=== PATIENT | male | born 1950 | race Caucasian/White ===

== ENCOUNTER 2018-11-10 08:39 | Inpatient (IN) | payer BC, MEDICARE ==
[2018-11-05 12:17] LABS: Urine Bacteria NONE SEEN /hpf (None Seen); Urine Blood Negative /uL (Negative); Urine Specific Gravity 1.012 (1.001-1.035); Urine WBC 1 /hpf (0 - 3)
[2018-11-05 12:24] LABS: Basophils # (auto) 0 uL; Basophils % (auto) 0.5 % (0.0-2.0); Eosinophils # (auto) 0.1 uL; Hematocrit 43.2 % (41.0-53.0); Hemoglobin 14.4 g/dL (13.5-17.5); Lymphocytes # (auto) 2.3 uL; Lymphocytes % (auto) 33.3 % (10.0-50.0); Mean Corpuscular Hemoglobin 30.5 pg (28.0-32.0); Mean Corpuscular Hgb Conc. 33.3 g/dL (32.0-36.0); Mean Corpuscular Volume 91.7 fL (80.0-100.0); Monocytes # (auto) 0.6 uL; Monocytes % (auto) 8.6 % (0.0-12.0); Neutrophils # (auto) 3.8 uL; Neutrophils % (auto) 55.6 % (37.0-80.0); Nucleated Red Blood Cells % 0.1 %; Platelet Count (auto) 256 10^3/uL (140-450); Red Blood Cells 4.71 10^6/uL (4.5-5.90); Red Cell Distribution Width 13.5 % (11.8-14.3); White Blood Cell 6.8 10^3/uL (4.4-10.8)
[2018-11-05 12:50] LABS: INR 0.92 (0.9-1.15); Partial Thromboplastin Time 30.6 sec (23.78-33.04); Prothrombin Time 9.9 sec (9.27-12.13)
[2018-11-05 12:55] LABS: Albumin 3.9 g/dL (3.4-5.0); Calcium 8.8 mg/dL (8.5-10.1); Potassium 4.1 mmol/L (3.5-5.1)
[2018-11-05 12:58] LABS: BUN/Creatinine Ratio 11.5; Bilirubin, Total 0.7 mg/dL (0.2-1.0)
[~2018-11-10] VITALS: Ht 185.4 cm; Wt 109.0 kg
[~2018-11-10 08:39] MED LIST: AMLO5TAB13 PO; BUPIVACAINE 0.25% INJ 50ML VIAL ONE; CHOL50007 PO; LIDOCAINE W/ EPINEPHRINE 1 % INJ 30ML ONE; LISI30TA36 PO; MANNITOL FTV 25% 12.5 GM/50 ML 0 ML IV ONE; METF-370 PO; MULT1TAB95 PO; OMEG500C PO
[2018-11-10] MEDS ORDERED: SUCCINYLCHOLINE CHLORIDE 20 MG/ML 10ML VIAL IV ONE (09:45)
[2018-11-10] MEDS ORDERED: MEPERIDINE HCL (50 MG/ML) 1 ML VIAL ONE (09:52)
[2018-11-10] MEDS ORDERED: fentaNYL CITRATE 100 MCG/2 ML VL ONE (09:52)
[2018-11-10] MEDS ORDERED: MIDAZOLAM HCL 1MG/1ML-2 ML VIAL ONE (09:52)
[2018-11-10] MEDS ORDERED: fentaNYL CITRATE 5 ML ONE (09:52)
[2018-11-10] MEDS ORDERED: PROPOFOL 10 MG/ML 20 ML IV ONE (09:53)
[2018-11-10] MEDS ORDERED: DEXAMETHASONE SOD PHOS 10MG/1ML VIAL INJ ONE (09:53)
[2018-11-10] MEDS ORDERED: ROCURONIUM 10MG/ML 10ML VIAL IV ONE (09:54)
[2018-11-10] MEDS ORDERED: ceFOXitin 2GM/100ML 100 ML IV ONE (10:01)
[2018-11-10] MEDS ORDERED: ONDANSETRON HCL 4 MG/2 ML VIAL IV ONE (11:30)
[2018-11-10] MEDS ORDERED: KETOROLAC TROMETH 30 MG/ML 1ML VIAL IV ONE (11:30)
[2018-11-10] MEDS ORDERED: HYDROmorphone HCL 2 MG/ML VL IV PRN ×2 (11:30→14:30)
[2018-11-10] MEDS ORDERED: ACCU-CHEK COMFORT CURVE STRIP VI ONE (11:30)
[2018-11-10] MEDS ORDERED: MIDAZOLAM HCL 1MG/1ML-2 ML VIAL IV PRN (11:30)
[2018-11-10] MEDS ORDERED: ePHEDrine SULFATE 50 MG/ML AMP IV PRN (11:30)
[2018-11-10] MEDS ORDERED: MORPHINE SULFATE 4 MG/ML SYR/VIAL IV PRN (11:30)
[2018-11-10] MEDS ORDERED: LABETALOL HCL 5 MG/ML 4ML SYRINGE IV PRN (11:30)
[2018-11-10] MEDS ORDERED: NEOSTIGMINE 1 MG/ML INJ (10mg/10ML VIAL) ONE (11:58)
[2018-11-10] MEDS ORDERED: MORPHINE SULFATE 4 MG/ML SYR/VIAL IV ONE (12:00)
[2018-11-10] MEDS ORDERED: GLYCOPYRROLATE 0.2 MG/ML 1ML VIAL ONE (12:51)
[2018-11-10] MEDS ORDERED: DEXTROSE (50%) 50ML SYRG IV PRN (14:30)
[2018-11-10] MEDS ORDERED: diphenhdrAMINE HCL 50 MG/1 ML VL IV PRN (14:30)
[2018-11-10] MEDS ORDERED: ONDANSETRON HCL 4 MG/2 ML VIAL IV PRN (14:30)
[2018-11-10] MEDS ORDERED: CEFOXITIN SODIUM 1 GM in D5W 5% 50 ML IV SCH ×2 (15:00→18:30)
--- NOTE | 2018-11-10 16:12 | NUR ---
RECEIVED PATIENT FROM OR, FAMILY BY HIS BEDSIDE. PATIENT IS ALERT AND AWAKE, NO SIGNS OF PAIN OR DISTRESS AT THIS TIME. HARTMANN CATH IN PLACE, TWO IV LINES IN PLACE, PATIENT BROUGHT IN BY BED. S/P RIGHT NEPHRECTOMY ROBOTIC ASSISTED.
[2018-11-10] MEDS: SOD CHL 0.45% 1,000 ML IV SCH ×2 (16:47→21:12)
[2018-11-10 17:00] VITALS: BP 155/82
[2018-11-10] MEDS: InsuLIN REG 1unit/0.01ml Soln (100units/ml) SC SCH (17:00)
[2018-11-10] MEDS: ACCU-CHEK COMFORT CURVE STRIP VI SCH ×2 (17:00→21:11)
[2018-11-10] MEDS ORDERED: amLODIPine BESYLATE 5 MG TAB PO SCH (17:30)
[2018-11-10] MEDS ORDERED: LISINOPRIL 10 MG TAB PO SCH (17:30)
[2018-11-10] MEDS: ACETAMINOPHEN/CODEINE#3 (300/30mg) TAB PO PRN (18:21)
--- NOTE | 2018-11-10 19:25 | NUR ---
OPENING SHIFT NOTE Received report from day shift RN. Patient is A&O X's 4 with no s/s of distress noted. Patient reports no pain. SCD's are applied bilaterally. Greenfield catheter is below level of bladder with no kinks noted. Bed is in lowest/locked position and side rails up X's 2. Educated patient on POC and to use call light when in need of assistance. Patient verbalized understanding. Call light is within reach of patient. Will continue to monitor and round hourly/PRN.
[2018-11-10] MEDS: CEFOXITIN SODIUM 1 GM in D5W 5% 50 ML IV SCH (21:11)
[2018-11-10 22:00] VITALS: BP 156/91
[2018-11-10] MEDS ORDERED: InsuLIN REG 1unit/0.01ml Soln (100units/ml) SC SCH (22:00)
[2018-11-11 05:00] VITALS: BP 151/77
[2018-11-11] MEDS: CEFOXITIN SODIUM 1 GM in D5W 5% 50 ML IV SCH ×2 (05:40→14:00)
[2018-11-11] MEDS: SOD CHL 0.45% 1,000 ML IV SCH ×2 (05:43→14:19)
--- NOTE | 2018-11-11 05:55 | NUR ---
HARTMANN CATHETER REMOVAL Catheter bag had 500 ml of clear,yellow urine that was drained prior to removal. Procedure and reason for removal of Hartmann catheter was explained to patient. Patient verbalized understanding. Hartmann catheter was removed using clean technique. Catheter was fully intact. Patient was provided with a urinal at this time. Will continue to monitor and round hourly/PRN. Will monitor urine output.
[2018-11-11 06:07] LABS: Calcium 8.2 mg/dL (8.5-10.1); Potassium 4.1 mmol/L (3.5-5.1)
[2018-11-11 06:09] LABS: BUN/Creatinine Ratio 9.5
[2018-11-11] MEDS: InsuLIN REG 1unit/0.01ml Soln (100units/ml) SC SCH ×2 (06:34→11:30)
[2018-11-11] MEDS: ACCU-CHEK COMFORT CURVE STRIP VI SCH ×2 (06:34→11:30)
--- NOTE | 2018-11-11 07:20 | NUR ---
Assumed care, patient is A/O x 4, POC discussed with patient, no signs of distress noted, incisional sites right abdomen CDI, IVs to right and left hands intact and patent, bed locked in lowest position, call light within reach, will continue to monitor Q 1hr and PRN
[2018-11-11 08:00] VITALS: BP 151/77
[2018-11-11 09:00] VITALS: BP 149/85
[2018-11-11] MEDS: ACETAMINOPHEN/CODEINE#3 (300/30mg) TAB PO PRN (09:01)
--- NOTE | 2018-11-11 09:30 | NUR ---
patient is C/O right neck and shoulder pain, heat packs and pain meds administered, MD aware
[2018-11-11] MEDS ORDERED: METHOCARBAMOL 500 MG TAB PO ONE (11:45)
[2018-11-11] MEDS ORDERED: metFORMIN HYDROCHLORIDE 500 MG TAB PO SCH (12:00)
[2018-11-11 13:00] VITALS: BP 174/93
[2018-11-11 14:35] VITALS: BP 162/49
--- NOTE | 2018-11-11 15:12 | NUR ---
Howard catheter insertion Patient assessed and determined to be in need of howard catheter. Order obtained from MD. Patient educated on catheter and reason for insertion. All questions answered. Howard catheter 14 guage Amharic inserted with clean sterile technique. Patient tolerated well.
[2018-11-11 16:12] VITALS: BP 162/49
--- NOTE | 2018-11-11 17:00 | NUR ---
Discharge instructions given as ordered. Encourage to follow up with PMD AND urology as instructed. Greenfield catheter left in place and patent per MD instructions, Patient educated on Greenfield care and leg bag use, All questions and concerns addressed. Patient verbalized understanding. IVs removed with catheters intact, pressure dressing applied. Patient taken to vehicle via wheelchair with all personal belongings, accompanied by staff and family member. No distress noted at time of departure.
== END 2018-11-11 17:30 | disposition home or self-care (01) | DRG 661 ==
LOC: SUR 08:39 → CENTRAL 15:55
PROVIDERS: ADMIT Internal Medicine; ATTEND Urology
PROC: 8E0W4CZ Robotic Assisted Procedure of Trunk Region, Percutaneous Endoscopic Approach (ICD-10-PCS; 2018-11-10)
PROC: 0TT04ZZ Resection of Right Kidney, Percutaneous Endoscopic Approach (ICD-10-PCS; principal; 2018-11-10 10:05)
DX: N13.30 Unspecified hydronephrosis (principal); M54.2 Cervicalgia; M54.9 Dorsalgia, unspecified; I11.9 Hypertensive heart disease without heart failure; E11.9 Type 2 diabetes mellitus without complications
CPT/HCPCS: 36415; 80048; 80053; 81001; 82962; 85025; 85610; 85730; 86850; 86900; 86901; 87086; A6257; G0378; J0330; J0694; J1100; J2250; J2704; J3490; J7060

== ENCOUNTER 2019-06-15 11:53 | Day surgery (SDC) | payer BC, MEDICARE ==
[2019-06-14 12:51] LABS: Basophils # (auto) 0 uL; Basophils % (auto) 0.7 % (0.0-2.0); Eosinophils # (auto) 0.3 uL; Eosinophils % (auto) 3.5 % (0.0-7.0); Hematocrit 39.3 % (41.0-53.0); Lymphocytes # (auto) 2.1 uL; Lymphocytes % (auto) 27.8 % (10.0-50.0); Mean Corpuscular Hemoglobin 30.3 pg (28.0-32.0); Mean Corpuscular Volume 91.8 fL (80.0-100.0); Monocytes # (auto) 0.7 uL; Monocytes % (auto) 9.1 % (0.0-12.0); Neutrophils # (auto) 4.5 uL; Neutrophils % (auto) 58.9 % (37.0-80.0); Platelet Count (auto) 326 10^3/uL (140-450); Red Blood Cells 4.28 10^6/uL (4.5-5.90); Urine Bacteria MANY /hpf (None Seen); Urine Blood TRACE /uL (Negative); Urine Specific Gravity 1.014 (1.001-1.035); Urine WBC 118 /hpf (0 - 3); Urine WBC Clumps PRESENT /hpf (None Seen); White Blood Cell 7.6 10^3/uL (4.4-10.8)
[2019-06-14 13:45] LABS: INR < 0.93 (0.9-1.15); Partial Thromboplastin Time 29.9 sec (23.64-32.05)
[2019-06-14 13:50] LABS: Albumin 3.8 g/dL (3.4-5.0); Calcium 9.3 mg/dL (8.5-10.1); Potassium 4.6 mmol/L (3.5-5.1)
[2019-06-14 13:54] LABS: BUN/Creatinine Ratio 13.7; Bilirubin, Total 0.4 mg/dL (0.2-1.0); Total Protein 8.1 g/dL (6.4-8.2)
[~2019-06-15] VITALS: Ht 185.4 cm; Wt 103.9 kg
[~2019-06-15 11:53] MED LIST changes: +AML5T PO; -AMLO5TAB13 PO; -BUPIVACAINE 0.25% INJ 50ML VIAL ONE; -LIDOCAINE W/ EPINEPHRINE 1 % INJ 30ML ONE; +LISI10TA6 PO; -MANNITOL FTV 25% 12.5 GM/50 ML 0 ML IV ONE; -METF-370 PO; -OMEG500C PO
[2019-06-15] MEDS ORDERED: ceFOXitin 2GM/100ML 100 ML IV ONE (13:56)
[2019-06-15] MEDS ORDERED: SUCCINYLCHOLINE CHLORIDE 20 MG/ML 10ML VIAL IV ONE (14:45)
[2019-06-15] MEDS ORDERED: FUROSEMIDE 20 MG/2 ML VIAL IV ONE (14:45)
[2019-06-15] MEDS ORDERED: MEPERIDINE HCL (25 MG/ML) 1ML VIAL ONE (14:50)
[2019-06-15] MEDS ORDERED: fentaNYL CITRATE 100 MCG/2 ML VL ONE (14:50)
[2019-06-15] MEDS ORDERED: MIDAZOLAM HCL 1MG/1ML-2 ML VIAL ONE (14:52)
[2019-06-15] MEDS ORDERED: SODIUM CHLORIDE LOCK 10 ML ONE (14:52)
[2019-06-15] MEDS ORDERED: PROPOFOL 10 MG/ML 20 ML IV ONE (14:52)
[2019-06-15] MEDS ORDERED: ONDANSETRON HCL 4 MG/2 ML VIAL ONE (14:52)
[2019-06-15] MEDS ORDERED: ACCU-CHEK COMFORT CURVE STRIP VI ONE (15:00)
[2019-06-15] MEDS ORDERED: HYDROmorphone HCL 2 MG/ML VL IV PRN (15:00)
[2019-06-15] MEDS ORDERED: fentaNYL CITRATE 100 MCG/2 ML VL IV PRN (15:00)
[2019-06-15] MEDS ORDERED: METOCLOPRAMIDE HCL 5MG/ml INJ 2ml VIAL IV PRN (15:00)
[2019-06-15] MEDS ORDERED: ROCURONIUM 10MG/ML 10ML VIAL IV ONE (15:04)
[2019-06-15 16:55] VITALS: BP 160/78
[2019-06-16] MEDS ORDERED: LISINOPRIL 10 MG TAB PO SCH (10:00)
[2019-06-16] MEDS ORDERED: PATIENTS OWN MEDICATION (Lisinopril 10 MG) PO SCH (10:00)
[2019-06-16] MEDS ORDERED: amLODIPine BESYLATE 5 MG TAB PO SCH (12:00)
== END 2019-06-15 17:17 | disposition home or self-care (01) ==
LOC: SUR 11:53
PROVIDERS: ATTEND Urology
DX: N40.1 Benign prostatic hyperplasia with lower urinary tract symptoms (principal); I11.9 Hypertensive heart disease without heart failure; E11.9 Type 2 diabetes mellitus without complications; Z79.84 Long term (current) use of oral hypoglycemic drugs; Z79.899 Other long term (current) drug therapy; Z90.5 Acquired absence of kidney
CPT/HCPCS: 36415; 52601; 80053; 81001; 82962; 85025; 85610; 85730; 88305; 88342; 93005; J0330; J0694; J1940; J2175; J2250; J2405; J2704; J3010

== ENCOUNTER 2024-03-15 11:15 | Inpatient (IN) | payer BC, MEDICARE, OTHER ==
[~2024-03-15] VITALS: Ht 185.4 cm; Wt 103.0 kg
[~2024-03-15 11:15] MED LIST changes: +LISI10TA34 PO; -LISI10TA6 PO; -LISI30TA36 PO; +LISI30TA8 PO
[2024-03-15 11:46] LABS: Urine Bacteria None Seen /hpf (None Seen)
[2024-03-15 12:33] LABS: Basophils # (auto) 0 10 ^3/uL (0-0.2); Basophils % (auto) 0.3 % (0.0-2.0); Eosinophils # (auto) 0 10 ^3/uL (0-0.8); Eosinophils % (auto) 0.2 % (0.0-7.0); Hematocrit 45.5 % (41.0-53.0); Hemoglobin 15.5 g/dL (13.5-17.5); Lymphocytes % (auto) 8.5 % (10.0-50.0); Mean Corpuscular Volume 94.1 fL (80.0-100.0); Monocytes # (auto) 0.6 10 ^3/uL (0-1.3); Monocytes % (auto) 5.7 % (0.0-12.0); Neutrophils # (auto) 9.7 10 ^3/uL (1.6-8.6); Neutrophils % (auto) 85.3 % (37.0-80.0); Nucleated Red Blood Cells % 0.1 %; Red Blood Cells 4.84 10^6/uL (4.5-5.90); White Blood Cell 11.4 10^3/uL (4.4-10.8)
[2024-03-15 12:37] LABS: Urine Blood 3+ /uL (Negative); Urine Clarity Clear (Clear); Urine Color Light-Yellow (Yellow); Urine Hyaline Cast FEW /lpf (0 - 2); Urine Protein, UAD 1+ (Negative); Urine Specific Gravity 1.013 (1.001-1.035); Urine Urobilinogen Normal (Negative); Urine WBC 9 /hpf (0 - 3); Urine pH 5.5 (5.0-9.0)
[2024-03-15 12:37] LABS: Chloride 109 mmol/L (98-107); Potassium 3.9 mmol/L (3.5-5.1); Sodium 139 mmol/L (136-145)
[2024-03-15 12:38] LABS: Anion Gap 10 (5-15); Calcium 9.6 mg/dL (8.7-10.4); Carbon Dioxide 20 mmol/L (20-30)
[2024-03-15 12:43] LABS: BUN/Creatinine Ratio 9.9 (10.0-20.0); Blood Urea Nitrogen 17 mg/dL (9-23); Glucose 84 mg/dL (74-106)
[2024-03-15] MEDS: SODIUM CHLORIDE 0.9% 500 ML IVB ONE (17:23)
[2024-03-15] MEDS ORDERED: MORPHINE SULFATE INJ 2 MG/ml SYRG IV PRN (17:45)
[2024-03-15] MEDS ORDERED: NITROGLYCERIN 0.4 MG SL TAB SL PRN (17:45)
[2024-03-16 02:00] VITALS: BP 157/85; PULSE 67; RESP 18; TEMP 98.1; O2SAT 96
[2024-03-16] MEDS ORDERED: ATOR40TA52 PO (02:06)
[2024-03-16] MEDS ORDERED: INSUINJ37 SC (02:07)
[2024-03-16] MEDS ORDERED: CANA100T PO (02:09)
[2024-03-16] MEDS ORDERED: SEMA7TAB2 PO (02:09)
[2024-03-16] MEDS ORDERED: TAMS0.4C36 PO (02:09)
[2024-03-16 03:10] VITALS: BP 157/85; PULSE 67; RESP 18; TEMP 98.1; O2SAT 96
[2024-03-16 05:00] VITALS: BP 134/76; PULSE 63; RESP 18; TEMP 98.1; O2SAT 97
[2024-03-16] MEDS: SODIUM CHLORIDE 0.9% 1,000 ML IV SCH (07:45)
[2024-03-16 08:54] VITALS: BP 145/76; PULSE 62; RESP 16; TEMP 98; O2SAT 95
[2024-03-16 09:02] LABS: Basophils # (auto) 0.1 10 ^3/uL (0-0.2); Basophils % (auto) 1.2 % (0.0-2.0); Eosinophils # (auto) 0.1 10 ^3/uL (0-0.8); Eosinophils % (auto) 2.5 % (0.0-7.0); Hematocrit 44.3 % (41.0-53.0); Hemoglobin 14.9 g/dL (13.5-17.5); Lymphocytes # (auto) 1.5 10 ^3/uL (0.4-5.4); Lymphocytes % (auto) 25.9 % (10.0-50.0); Mean Corpuscular Hemoglobin 31.4 pg (28.0-32.0); Mean Corpuscular Hgb Conc. 33.7 g/dL (32.0-36.0); Mean Corpuscular Volume 93.3 fL (80.0-100.0); Monocytes # (auto) 0.6 10 ^3/uL (0-1.3); Monocytes % (auto) 9.4 % (0.0-12.0); Neutrophils # (auto) 3.6 10 ^3/uL (1.6-8.6); Nucleated Red Blood Cells % 0.1 %; Red Blood Cells 4.74 10^6/uL (4.5-5.90); Red Cell Distribution Width 13.9 % (11.8-14.3); White Blood Cell 5.9 10^3/uL (4.4-10.8)
[2024-03-16 09:16] LABS: Anion Gap 5 (5-15); Carbon Dioxide 24 mmol/L (20-30); Chloride 111 mmol/L (98-107); Potassium 4.3 mmol/L (3.5-5.1); Sodium 140 mmol/L (136-145)
[2024-03-16 09:17] LABS: Calcium 9.2 mg/dL (8.7-10.4)
[2024-03-16 09:22] LABS: BUN/Creatinine Ratio 8.8 (10.0-20.0); Blood Urea Nitrogen 15 mg/dL (9-23); Glucose 96 mg/dL (74-106)
[2024-03-16 13:00] VITALS: BP 142/97; PULSE 59; RESP 17; TEMP 98.7; O2SAT 96
== END 2024-03-16 15:04 | disposition home or self-care (01) | DRG 74 ==
LOC: EDBD 11:15 → ER 11:15 → OVERFLOW 17:43 → WEST WING 03-16 01:49 → OBSVTOIN 03-16 10:01
PROVIDERS: ADMIT Internal Medicine; ATTEND Internal Medicine
DX: G90.8 Other disorders of autonomic nervous system (principal); I10 Essential (primary) hypertension; E11.9 Type 2 diabetes mellitus without complications; R31.9 Hematuria, unspecified; R41.3 Other amnesia; E78.5 Hyperlipidemia, unspecified; Z90.5 Acquired absence of kidney; Z79.4 Long term (current) use of insulin; Z79.899 Other long term (current) drug therapy
CPT/HCPCS: 36415; 70450; 70551; 71045; 80048; 81001; 84484; 85025; 93005; G0378